=== PATIENT | male | born 1960 | race Caucasian/White ===

== ENCOUNTER → 2023-11-02 06:57 | Outpatient (REF) | payer BC, SELFPAY | LOC: EMG 06:57 | PROVIDERS: ATTENDING PHYSICIAN Psychiatry & Neurology Neurology; FAMILY PHYSICIAN Family Medicine | DX: R20.0 Anesthesia of skin (principal); M79.10 Myalgia, unspecified site | CPT/HCPCS: 95886; 95910 ==